=== PATIENT | male | born 1990 | race Caucasian/White ===

== ENCOUNTER 2021-09-14 04:19 | Emergency (ER) | payer OTHER, SELFPAY ==
[2021-09-14 04:26] VITALS: BP 115/61; PULSE 71; RESP 20; TEMP 36.5; O2SAT 98; BMI 19.2
--- NOTE | 2021-09-14 04:39 | ED.WOUNDLAC ---
HPI - Wound/Laceration General Chief Complaint: Head Injury Stated Complaint: face inj @ work Time Seen by Provider: 09/14/21 04:31 Source: patient Mode of arrival: ambulatory Limitations: no limitations History of Present Illness HPI narrative: buffer at work kicked back and hit L cheek causing laceration Onset (ago): minute(s) (just prior to arrival ) Location: face Place: work Patient tetanus UTD: No Context: accidental Associated symptoms: pain Treatments prior to arrival: bandage Related Data Allergies Allergy/AdvReac Type Severity Reaction Status Date / Time No Known Allergies Allergy Verified 09/14/21 04:30 Review of Systems Review of Systems: Constitutional : No Fever, No Chills, Cardiovascular : No Chest Pain, No SOB Respiratory : No Dyspnea Gastrointestinal : No abdominal pain Musculoskeletal : No Joint Swelling Skin : No rash, positive skin laceration Neuro : No Weakness, No Numbness Psych : No SI, no anxiety PMFSH Past Medical History Attestation statement: The following information was validated with the patient. Medical History No pertinent past medical history Social History Social History (Updated 09/14/21 @ 04:43 by Justina Medrano DO) Patient Tobacco Use Status: Never used Tobacco Advance Directives: No Physical Exam Vital Signs: Vital Signs: Last Vital Signs Temp 97.7 F 09/14/21 04:26 Pulse 71 09/14/21 04:26 Resp 20 09/14/21 04:26 BP 115/61 09/14/21 04:26 Pulse Ox 98 09/14/21 04:26 BMI result Body Mass Index 19.2 Appearance: Alert. Oriented X3. No acute distress. Eyes: Pupils equal, round and reactive to light. ENT: Pharynx normal. L zygoma area 2cm vertical linear laceration Neck: Normal inspection. Neck supple. CVS: Normal heart rate and rhythm. Pulses normal. Respiratory: No respiratory distress. Abdomen: atraumatic Skin: Skin warm and dry. Normal skin color. Extremities: No lower extremity edema. Neuro: Oriented X 3. No motor deficit. No sensory deficit. MDM - Wound/Laceration MDM Narrative Medical decision making narrative: 31 yo male with no sig PMH here with c/o L cheek laceration from buffer at work - will repair laceration and update tdap - no head injury no LOC no concern for fracture Procedures Laceration Laceration 1: Site: face Side (If applicable): left Size (cm): 2 Description: linear Depth: simple, single layer Local Anesthetic: lidocaine 2% and other anesthetic (LMX) Amount of anesthesia used (mL): 2 Pre-repair: wound explored Skin layer closed with: other (prolene) Size (cm): 6-0 Number of sutures: 3 Technique: simple, interrupted Discharge Plan Discharge Clinical Impression: Laceration of face Qualifiers: Encounter type: initial encounter Qualified Code(s): S01.81XA - Laceration without foreign body of other part of head, initial encounter Patient Disposition: Home, Self-Care Instructions: Laceration (ED) Additional Instructions: return to ED for any worsening symptoms or concerns sutures out in 7 days no pool, ocean, hot tubs, shower is okay keep clean and dry primary care or urgent care center to remove stitches Stand Alone Forms: Work/School Release
[2021-09-14] MEDS: Lidocaine 4 % Cream KIT 1 APPL TOPICAL (04:52)
[2021-09-14] MEDS: Lidocaine HCl 2 % MPF 5 ML VIAL SUBCUT (04:52)
[2021-09-14] MEDS: Diphth,Pertus(ACell),Tet Adult 0.5 ML SYRINGE IM (04:52)
== END 2021-09-14 05:31 | disposition home or self-care (01) ==
LOC: HO.ED 05:17
PROVIDERS: Emergency Provider Emergency Medicine
DX: S01.412A Laceration without foreign body of left cheek and temporomandibular area, initial encounter (principal); W31.82XA Contact with other commercial machinery, initial encounter; Y93.89 Activity, other specified; Y92.59 Other trade areas as the place of occurrence of the external cause; Y99.0 Civilian activity done for income or pay
CPT/HCPCS: 12011; 90471; 90715; 99284

== ENCOUNTER 2023-10-20 19:07 | Emergency (ER) | payer OTHER, SELFPAY ==
[2023-10-20 20:01] VITALS: BP 107/72; PULSE 57; RESP 18; TEMP 36.8; O2SAT 98; BMI 20.8
--- NOTE | 2023-10-20 20:06 | ED_ITS ---
HPI - General Adult General Chief complaint: Dental/Oral Stated complaint: tooth pain/? infection Time Seen by Provider: 10/20/23 20:05 Source: patient, RN notes reviewed and old records reviewed Mode of arrival: ambulatory Limitations: no limitations History of Present Illness ED Provider: Saad PATTERSON narrative: 33-year-old male presents for evaluation of right lower dental pain. He has numerous dental issues and dental fractures. Denies any recent dental fracture but has on and off pain to the right lower jaw. He denies any significant swelling to the area. His pain is present on and off for the last few weeks Denies any swelling to the throat. No fevers or chills Related Data Previous Rx's ?Medication ?Instructions ?Recorded amoxicillin 875 mg-potassium 1 tab PO Q12H #20 tabs 10/20/23 clavulanate 125 mg tablet ibuprofen 600 mg tablet 600 mg PO Q6H PRN pain #20 tabs 10/20/23 Allergies Allergy/AdvReac Type Severity Reaction Status Date / Time No Known Allergies Allergy Verified 10/20/23 20:02 Review of Systems Constitutional: Constitutional: Denies body ache(s), Denies chills, Denies fever(s) and Denies headache(s) Eyes: Eyes: Denies blurry vision ENT: Denies headache(s), Reports mouth pain, Denies sore throat and Denies throat swelling Cardiovascular: Cardiovascular: Denies chest pain and Denies dyspnea Respiratory: Respiratory: Denies cough and Denies dyspnea Gastrointestinal: Gastrointestinal: Denies abdominal pain, Denies nausea and Denies vomiting Integumentary/Breasts: Skin/Breast: Denies rash Neurologic: Denies headache(s) Allergic/Immunologic: Allergic/Immunologic: Denies throat swelling [facility] Past Medical History Medical History No pertinent past medical history Social History Social History (Updated 09/14/21 @ 04:43 by Sherry Medrano DO) Patient Tobacco Use Status: Never used Tobacco Advance Directives: No Advance Directives Information Provided: No Physical Exam ED Vital Signs: Vital Signs - 24 hr 10/20/23 20:01 Temperature 98.3 F Pulse Rate 57 Respiratory Rate 18 Blood Pressure 107/72 Pulse Oximetry 98 Oxygen Delivery Method Room Air BMI result Body Mass Index 20.8 Const General: healthy appearing, comfortable, no acute distress, alert and awake Nutritional Appearance: well nourished Orientation/consciousness: patient oriented x3 HENMT Other: Chronic appearing dental fracture to tooth number degree of necrosis to the area. No surrounding erythema or gingival edema. No retropharyngeal edema or abscess Head: Yes normocephalic and Yes atraumatic Eyes Eyelids: Yes eyelids normal Conjunctivae: conjunctivae normal Sclerae: sclerae normal Corneas: corneas normal Pupils: Equal, round and reactive pupils present EOM: EOMs intact bilaterally Neck Neck: Yes full ROM Resp Effort & Inspection: normal respiratory effort, able to speak in complete sentences and not labored Skin General skin exam: elasticity normal Neuro General: patient oriented x3 Cranial nerves: Yes Equal, round and reactive pupils present and Yes Bilaterally intact EOM present Cognition (Neuro): normal cognition Extrem Other: Moving all extremities well without any obvious deformities Medical Decision Making Medical Decision Making MDM Narrative: 33-year-old male presents for evaluation of facial pain and likely has a chronic infection to evaluate that is action. Will treat with Augmentin and ibuprofen he will dentist. Differential Diagnosis Differential Diagnoses: The differential diagnosis associated with the presentation includes Dental caries Dental fracture Gingivitis Abscess Discharge Plan Discharge Clinical Impression: Toothache, Dental caries Patient Disposition: Home, Self-Care Instructions: Toothache (ED) Additional Instructions: Take Augmentin twice daily for the next 10 days. Use ibuprofen as needed for pain You may also use [id number] benzocaine/Orajel Warm compresses can also help her discomfort Follow-up with your dentist as soon as possible Prescriptions: New amoxicillin-pot clavulanate 875-125 mg tablet 1 tab PO Q12H Qty: 20 0RF ibuprofen 600 mg tablet 600 mg PO Q6H PRN (Reason: pain) Qty: 20 0RF Print Language: Paraguayan
[2023-10-20 20:17] VITALS: BP 107/72; PULSE 57; RESP 18; TEMP 36.8; O2SAT 98
== END 2023-10-20 20:17 | disposition home or self-care (01) ==
PROVIDERS: Emergency Provider Emergency Medicine
DX: K02.9 Dental caries, unspecified (principal); K08.89 Other specified disorders of teeth and supporting structures
CPT/HCPCS: 99282; 99283

== ENCOUNTER 2023-12-05 16:16 | Emergency (ER) | payer BC, SELFPAY ==
[2023-12-05 16:29] VITALS: BP 109/69; PULSE 97; RESP 18; TEMP 36.9; O2SAT 97; BMI 19.7
--- NOTE | 2023-12-05 16:37 | ED_ITS ---
HPI - General Adult General Chief complaint: Dental/Oral Stated complaint: body aches/had tooth pulled painful/infection? Time Seen by Provider: 12/05/23 17:27 Source: patient and family Mode of arrival: ambulatory Limitations: no limitations History of Present Illness ED Provider: Jesus Manuel Denson PA-C HPI narrative: 33-year-old male presents the ER for evaluation of body aches and headaches that started yesterday morning. Patient reports mild dry cough, runny nose. He had chills last night. He did not take his temperature is unknown if he had a fever. He is a smoker. Patient recently had dental work done on his left lower tooth. He was not sent home on antibiotics per the dentist. Reports the pain in the mouth is getting better and his jaw is not swollen. He is able to fully open and close the jaw. No neck swelling. He has a follow-up with his dentist on the . MD complaint: Body aches Onset (ago): day(s) (1) Relieving factors: none Exacerbating factors: none Associated symptoms: cough, diaphoresis, fever/chills, headaches, loss of ap petite and malaise Treatments prior to arrival: none Related Data Previous Rx's ?Medication ?Instructions ?Recorded amoxicillin 875 mg-potassium 1 tab PO Q12H #20 tabs 10/20/23 clavulanate 125 mg tablet ibuprofen 600 mg tablet 600 mg PO Q6H PRN pain #20 tabs 10/20/23 Allergies Allergy/AdvReac Type Severity Reaction Status Date / Time No Known Allergies Allergy Verified 12/05/23 16:30 Review of Systems Review of Systems: Yes all other systems are reviewed and are negative [facility] Past Medical History Medical History No pertinent past medical history Social History Social History (Updated 09/14/21 @ 04:43 by Sherry Medrano DO) Patient Tobacco Use Status: Never used Tobacco Advance Directives: No Advance Directives Information Provided: No Do you have a plan to hurt others: No Plan Physical Exam ED Vital Signs: Vital Signs - 24 hr 12/05/23 16:29 12/05/23 17:54 Temperature 98.4 F 98.4 F Pulse Rate 97 97 Respiratory Rate 18 18 Blood Pressure 109/69 109/69 Pulse Oximetry 97 97 Oxygen Delivery Method Room Air Room Air BMI result Body Mass Index 19.7 Appearance: Alert. Oriented X3. No acute distress. Head: normocephalic, atraumatic. Eyes: Pupils equal, round and reactive to light. ENT: Pharynx normal. No tonsillar swelling or exudate. Left lower jaw with visible sutures where recent tooth was extracted no associated gingival swelling, jaw swelling. Neck: Normal inspection. Neck supple. CVS: Normal heart rate and rhythm. Pulses normal. Respiratory: No respiratory distress. Breath sounds normal. Abdomen: Soft and nontender. +BS x4 Skin: Skin warm and dry. Normal skin color. Normal skin turgor. No rashes. Extremities: No lower extremity edema. No joint swelling. Neuro/psych: Oriented X 3. No motor deficit. No sensory deficit. CN II-XII int act. Normal speech and cognition. Course Course Course Narrative: This is a rapid medical exam. Deferred additional HPI, ROS, PE to primary provider. Patient reports body aches since Thursday, of note had 2 teeth pulled on . Will send viral testing LAISHA Lilly APRN Medical Decision Making Medical Decision Making [facility] Narrative: 33-year-old male presenting to the ER for evaluation of body aches and headache that started yesterday. He did have recent dental work. His mouth seems to be healing appropriately. He is not on oral antibiotics. No indication for them at this time. Symptoms most likely related to an acute viral process. COVID, flu, RSV were negative today. His vital signs are stable and physical exam is unremarkable. We discussed symptomatic management and return precautions. Stable for discharge home. Differential Diagnosis Differential Diagnoses: The differential diagnosis associated with the presentation includes strep, covid, flu, rsv, other viral syndrome, bronchitis, pneumonia, tick borne illness Lab Data [facility] Lab Attestation statement: I reviewed the patient's lab results. Labs: Lab Results 12/05/23 Range/Units 16:37 Influenza Type A (PCR) NEGATIVE (Negative) Influenza Type B (PCR) NEGATIVE (Negative) RSV RNA Qual (PCR) NEGATIVE (Negative) SARS-CoV-2 RNA (RT-PCR) NEGATIVE (Negative) Independent Historian Clinical information obtained from an independent historian. History obtained from or confirmed by: Spouse External Record Review External record reviewed: Outpatient record Prescription Management I considered prescription management with: Pain Medication, Antiviral and Antibiotic Critical Care Time Critical Care Time Critical Care Time: No Discharge Plan Discharge Clinical Impression: Acute viral syndrome Patient Disposition: Home, Self-Care Instructions: Viral Syndrome (ED) Additional Instructions: You tested negative for COVID, Flu and RSV Your symptoms most likely viral. Take Motrin and Tylenol as needed for body aches. Rest and drink plenty of fluids. Monitor yourself for a fever at home. Follow-up with your dentist. Prescriptions: No Action amoxicillin-pot clavulanate 875-125 mg tablet 1 tab PO Q12H Qty: 20 0RF ibuprofen 600 mg tablet 600 mg PO Q6H PRN (Reason: pain) Qty: 20 0RF Stand Alone Forms: Work/School Release Interventions: ED Discharge Assessment Last Done: 12/05/23 17:54 Discharge Date/Time: 12/05/23 17:55 Print Language: Frisian
[2023-12-05 17:19] LABS: Influenza A PCR NEGATIVE (Negative); Influenza B PCR NEGATIVE (Negative); Resp Syncy Virus RNA Qual PCR NEGATIVE (Negative); SARS COV2 PCR INHOUSE NEGATIVE (Negative)
[2023-12-05 17:54] VITALS: BP 109/69; PULSE 97; RESP 18; TEMP 36.9; O2SAT 97
== END 2023-12-05 17:55 | disposition home or self-care (01) ==
PROVIDERS: Nurse Practitioner Family; Emergency Provider Emergency Medicine Emergency Medical Services
DX: B34.9 Viral infection, unspecified (principal); Z03.818 Encounter for observation for suspected exposure to other biological agents ruled out; R05.9 Cough, unspecified
CPT/HCPCS: 0241U; 99282; 99283